=== PATIENT | male | born 1965 | race Caucasian/White ===

== ENCOUNTER 2016-07-28 12:24 | Emergency (ER) | payer MEDICARE, OTHER | END 2016-07-28 12:44 | disposition home or self-care (01) | LOC: ER 12:24 | DX: Z76.0 Encounter for issue of repeat prescription (principal); M54.2 Cervicalgia; M25.511 Pain in right shoulder; M25.531 Pain in right wrist; F17.210 Nicotine dependence, cigarettes, uncomplicated; Z87.440 Personal history of urinary (tract) infections ==